=== PATIENT | male | born 1970 | race Caucasian/White ===

== ENCOUNTER 2017-08-30 22:01 | Emergency (ER) | payer SELFPAY ==
[~2017-08-30] VITALS: Ht 185.4 cm; Wt 134.3 kg
[2017-08-30] MEDS ORDERED: NITROGLYCERIN 0.4 MG/TAB BOTTLE SL ONE ×2 (22:15→22:19)
[2017-08-30] MEDS ORDERED: ASPIRIN 81 MG TAB.CHEW PO ONE (22:15)
[2017-08-30] MEDS ORDERED: ASPIRIN 81 MG TAB.CHEW ONE (22:19)
[2017-08-30] MEDS ORDERED: NITR0.4T SL (22:20)
[2017-08-30] MEDS ORDERED: ALBU8.5H8 IH (22:20)
--- NOTE | 2017-08-30 22:20 | NUR ---
PT AMBULATED TO ER WITH C/O CHEST PAIN THAT STARTED AT 1999. AAOX4. SAO2 100% ON MONITOR RA. BROTHER AT BEDSIDE.
--- NOTE | 2017-08-30 22:21 | NUR ---
xray at bedside.
--- NOTE | 2017-08-30 22:25 | NUR ---
PT STATED THAT HIS MAIN INTENTION FOR THIS ER VISIT WAS TO GET A REFILL OF NITROGLYCERIN.
--- NOTE | 2017-08-30 22:25 | NUR ---
PT GIVEN NITRO SL 1ST DOSE AT 2220. BP 151/84. PT GIVEN NITRO SL 2ND DOSE AT 2225. BP 156/66. PT REFUSES MEDICAL TREATMENT AT THIS TIME. YAN.
--- NOTE | 2017-08-30 22:36 | NUR ---
Patient does not wish to proceed with medical care recommended by Dr. Wren. Patient given information related to possible complications, up to and including , which could occur as a result of leaving the hospital at this time. Patient verbalizes understanding of risks involved due to leaving against medical advice. Patient has signed AMA form.
--- NOTE | 2017-08-30 23:44 | NUR ---
Patient discharged to home in stable conditon. Written and verbal after care instructions given. Patient verbalizes understanding of instructions. PT left ER & walks in steady gait. All belongings with pt. accompanied by brother.
[2017-08-30 23:50] VITALS: BP 138/78
== END 2017-08-30 22:36 | disposition home or self-care (01) ==
LOC: ER 22:02
DX: R07.89 Other chest pain (principal); I10 Essential (primary) hypertension; E11.9 Type 2 diabetes mellitus without complications; F17.200 Nicotine dependence, unspecified, uncomplicated
CPT/HCPCS: 71045; 93005; A4663

== ENCOUNTER 2017-09-13 07:04 | Inpatient (IN) | payer MEDICAID ==
[~2017-09-13] VITALS: Ht 182.9 cm; Wt 127.0 kg
[~2017-09-13 07:04] MED LIST: ALBU8.5H8 IH; NITR0.4T SL
[2017-09-13] MEDS ORDERED: ASPIRIN 325 MG TABLET PO ONE (07:15)
[2017-09-13] MEDS ORDERED: NITROGLYCERIN 0.4 MG/TAB BOTTLE SL ONE ×2 (07:15→07:19)
[2017-09-13] MEDS ORDERED: ASPIRIN 325 MG TABLET ONE (07:19)
[2017-09-13 07:29] LABS: BASOPHILS # (AUTO) 0.1 K/uL (0.0-8.0); BASOPHILS % (AUTO) 1.3 % (0.0-2.0); EOSINOPHILS # (AUTO) 0.4 K/uL (0.0-0.7); EOSINOPHILS % (AUTO) 3.7 % (0.0-7.0); HEMATOCRIT 42.2 % (36.7-47.1); HEMOGLOBIN 14.5 g/dL (12.5-16.3); LYMPHOCYTES # (AUTO) 3.2 K/uL (20.0-40.0); LYMPHOCYTES % (AUTO) 31.3 % (20.5-51.5); MEAN CORPUSCULAR HEMOGLOBIN 29.8 uug (23.8-33.4); MEAN CORPUSCULAR HGB CONC 35 g/dL (32.5-36.3); MEAN CORPUSCULAR VOLUME 86.3 fL (73.0-96.2); MONOCYTES % (AUTO) 9.6 % (0.0-11.0); NEUTROPHILS # (AUTO) 5.6 K/uL (1.8-8.9); NEUTROPHILS % (AUTO) 54.1 % (38.5-71.5); PLATELET COUNT (AUTO) 244 K/uL (152-348); RED BLOOD CELL COUNT(AUTO) 4.89 MIL/uL (4.06-5.63); WHITE BLOOD COUNT (AUTO) 10.3 K/uL (3.6-10.2)
[2017-09-13 07:36] LABS: CREATININE 1.1 mg/dL (0.6-1.3); POTASSIUM 3.8 mmol/L (3.5-5.1)
[2017-09-13 07:48] LABS: BILIRUBIN,DIRECT 0.1 mg/dL (0.0-0.2); BILIRUBIN,TOTAL 0.3 mg/dL (0.2-1.0); TOTAL PROTEIN, SERUM 7.1 g/dL (6.4-8.2)
[2017-09-13] MEDS ORDERED: MORPHINE SULFATE 4 MG/1 ML DISP.SYRIN ONE (07:54)
[2017-09-13] MEDS ORDERED: MORPHINE SULFATE 4 MG/1 ML DISP.SYRIN IV ONE (08:00)
[2017-09-13] MEDS ORDERED: MAG HYDROX/AL HYDROX/SIMETH 30 ML LIQUID UDC PO PRN (08:15)
[2017-09-13] MEDS ORDERED: DOCUSATE SODIUM 100 MG CAPSULE PO PRN (08:15)
[2017-09-13] MEDS ORDERED: NITROGLYCERIN 0.4 MG/TAB BOTTLE SL PRN (08:15)
[2017-09-13] MEDS ORDERED: ONDANSETRON 4 MG/2 ML VIAL IV PRN (08:15)
[2017-09-13] MEDS ORDERED: NITROGLYCERIN OINT 1 GM PACKET TP PRN (08:15)
[2017-09-13] MEDS ORDERED: MORPHINE SULFATE 2 MG/1 ML DISP.SYRIN IV PRN ×2 (08:15)
[2017-09-13] MEDS ORDERED: ACETAMINOPHEN 325 MG TABLET PO PRN (08:15)
[2017-09-13] MEDS ORDERED: ALBUTEROL SULFATE 8 GM HFA.AER.AD IH PRN (08:30)
[2017-09-13] MEDS ORDERED: MORPHINE SULFATE 4 MG/1 ML DISP.SYRIN IV PRN ×2 (08:45)
[2017-09-13] MEDS ORDERED: ALBUTEROL SULFATE 2.5 MG/3 ML NEBU NEB PRN (08:45)
[2017-09-13] MEDS ORDERED: ASPIRIN 325 MG TABLET PO SCH (09:00)
[2017-09-13] MEDS ORDERED: ENOXAPARIN SODIUM 40 MG/0.4 ML DISP.SYRIN SQ SCH (09:00)
[2017-09-13 09:27] VITALS: BP 99/76
== END 2017-09-13 09:50 | disposition left against medical advice (07) | DRG 198 ==
LOC: ER 07:04 → TELE 08:24
PROVIDERS: ADMIT Registered Nurse; ATTEND Registered Nurse
DX: I20.9 Angina pectoris, unspecified (principal); E66.01 Morbid (severe) obesity due to excess calories; I10 Essential (primary) hypertension; M79.605 Pain in left leg; E11.9 Type 2 diabetes mellitus without complications; Z68.38 Body mass index [BMI] 38.0-38.9, adult; I25.2 Old myocardial infarction; E78.5 Hyperlipidemia, unspecified; J45.909 Unspecified asthma, uncomplicated; Z91.19 Patient's noncompliance with other medical treatment and regimen; I45.10 Unspecified right bundle-branch block; F17.210 Nicotine dependence, cigarettes, uncomplicated
CPT/HCPCS: 36415; 70030-TC; 71045; 85025; 85730; 93005; A4663; J1650; J2270

== ENCOUNTER 2017-09-14 19:16 | Emergency (ER) | payer MEDICAID ==
--- NOTE | 2017-09-14 19:26 | NUR ---
WENT TO GET PT IN WAITING ROOM, PT STATED"FUCK THIS HOSP[facility]! ANF LEFT. PT AMBULATED W/O DIFF/TOOK ALL BELONGINGS.
== END 2017-09-14 19:27 | disposition left against medical advice (07) ==
LOC: ER 19:17
DX: Z53.21 Procedure and treatment not carried out due to patient leaving prior to being seen by health care provider (principal)

== ENCOUNTER 2017-10-18 21:53 | Emergency (ER) | payer SELFPAY ==
[~2017-10-18] VITALS: Ht 185.4 cm; Wt 136.1 kg
--- NOTE | 2017-10-18 22:14 | NUR ---
ER MD DR RIZVI AT BEDSIDE FOR MSE.
--- NOTE | 2017-10-18 22:21 | NUR ---
PT BIB [facility] WITH C/O CHEST PAIN RADIATING TO LEFT ARM, ABDOMEN, & BACK THAT STARTED 4 HRS AGO. 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 PT WAS GIVEN 2 SL NITRO SPRAY & 162 MG ASPIRIN PER REPORT.
[2017-10-18] MEDS ORDERED: ALBUTEROL SULFATE 2.5 MG/3 ML NEBU ONE (22:29)
[2017-10-18] MEDS ORDERED: IPRATROPIUM BROMIDE 0.5 MG/2.5 ML NEBU ONE (22:29)
[2017-10-18] MEDS ORDERED: IPRATROPIUM BROMIDE 0.5 MG/2.5 ML NEBU NEB ONE (22:30)
[2017-10-18] MEDS ORDERED: ALBUTEROL SULFATE 2.5 MG/3 ML NEBU NEB ONE (22:30)
[2017-10-18 22:46] LABS: BASOPHILS # (AUTO) 0.1 K/uL (0.0-8.0); BASOPHILS % (AUTO) 0.8 % (0.0-2.0); EOSINOPHILS # (AUTO) 0.3 K/uL (0.0-0.7); EOSINOPHILS % (AUTO) 3.4 % (0.0-7.0); HEMATOCRIT 43.4 % (36.7-47.1); HEMOGLOBIN 15.1 g/dL (12.5-16.3); MEAN CORPUSCULAR HEMOGLOBIN 30.2 uug (23.8-33.4); MEAN CORPUSCULAR HGB CONC 35 g/dL (32.5-36.3); MEAN CORPUSCULAR VOLUME 86.9 fL (73.0-96.2); MONOCYTES # (AUTO) 0.7 K/uL (2.0-10.0); MONOCYTES % (AUTO) 6.4 % (0.0-11.0); NEUTROPHILS # (AUTO) 6.2 K/uL (1.8-8.9); NEUTROPHILS % (AUTO) 60.4 % (38.5-71.5); PLATELET COUNT (AUTO) 238 K/uL (152-348); WHITE BLOOD COUNT (AUTO) 10.2 K/uL (3.6-10.2)
[2017-10-18 22:51] LABS: CARBON DIOXIDE 24 mmol/L (21-32); CHLORIDE 100 mmol/L (98-107); CREATININE 1.1 mg/dL (0.6-1.3); GLUCOSE 257 mg/dL (74-106); POTASSIUM 3.9 mmol/L (3.5-5.1); UREA NITROGEN, BLOOD 16 mg/dL (7-18)
[2017-10-18 22:52] LABS: ETHANOL < 3 MG/DL (0-0)
[2017-10-18 22:57] LABS: ALANINE AMINOTRANSFERASE 41 U/L (16-63); ALKALINE PHOSPHATASE 108 U/L (50-136); ASPARTATE AMINOTRANSFERASE 13 U/L (15-37); BILIRUBIN,TOTAL 0.4 mg/dL (0.2-1.0); TOTAL PROTEIN, SERUM 7.3 g/dL (6.4-8.2)
[2017-10-18] MEDS ORDERED: IV NORMAL SALINE 1000 ML BAG IV ONE (23:00)
--- NOTE | 2017-10-18 23:00 | NUR ---
EXPLAINED TO PT PLAN OF CARE. PT BECOMING AGITATED, RAISING VOICE AT STAFF MEMBERS & ER DOCTOR. PT STATES HE WANTS TO GO AMA.
[2017-10-18] MEDS ORDERED: NITROGLYCERIN 0.4 MG/TAB BOTTLE SL ONE (23:07)
--- NOTE | 2017-10-18 23:10 | NUR ---
IV removed. Catheter intact and site benign. Pressure and 4x4 gauze applied to site. No bleeding noted.
--- NOTE | 2017-10-18 23:11 | NUR ---
Patient does not wish to proceed with medical care recommended by Dr. RIZVI ). Patient given information related to possible complications, up to and including , which could occur as a result of leaving the hospital at this time. Patient verbalizes understanding of risks involved due to leaving against medical advice. Patient has refused to signed AMA form.
--- NOTE | 2017-10-18 23:12 | NUR ---
Patient discharged to home in stable conditon. Written and verbal after care instructions given. Patient verbalizes understanding of instructions.
[2017-10-18 23:26] VITALS: BP 108/71
== END 2017-10-18 23:28 | disposition left against medical advice (07) ==
LOC: ER 21:54
DX: R07.89 Other chest pain (principal); I10 Essential (primary) hypertension; I25.10 Atherosclerotic heart disease of native coronary artery without angina pectoris; E11.9 Type 2 diabetes mellitus without complications; J45.909 Unspecified asthma, uncomplicated; E78.5 Hyperlipidemia, unspecified; I25.2 Old myocardial infarction; Z79.899 Other long term (current) drug therapy
CPT/HCPCS: 36415; 71045; 80053; 83880; 84484; 85025; 85379; 85730; 93005; 94640; 99285; A4663; G0480; J3590; 70030-TC